=== PATIENT | male | born 1985 | race Caucasian/White ===

== ENCOUNTER 2019-03-21 13:00 | Emergency (ER) | payer MEDICAID ==
[~2019-03-21] VITALS: Ht 180.3 cm; Wt 86.2 kg
[2019-03-21 13:06] VITALS: BP_SYST 144
[2019-03-21] MEDS ORDERED: cefTRIAXone 250 MG VIAL IM ONE (13:45)
[2019-03-21] MEDS ORDERED: AZITHROMYCIN 250 MG TABLET PO ONE (13:45)
[2019-03-21 14:03] LABS: BILIRUBIN,URINE 1+ (NEGATIVE); BLOOD, URINE 2+ (NEGATIVE); CLARITY/URINE HAZY (CLEAR); COLOR,URINE AMBER (YELLOW); GLUCOSE,URINE NEGATIVE (NEGATIVE); KETONES,URINE NEGATIVE (NEGATIVE); LEUKOCYTE ESTERASE ,URINE 2+ (NEGATIVE); NITRITE, URINE NEGATIVE (NEGATIVE); PH,URINE 5.5 (5.0-8.0); PROTEIN URINE 1+ (NEGATIVE)
[2019-03-21 14:13] LABS: BACTERIA,URINE MANY /HPF (None Seen); WBC,URINE >100 /HPF (0-3)
[2019-03-21 14:18] VITALS: BP_SYST 132
[2019-03-21] MEDS ORDERED: POLYMYXIN 500,000/BACIT.10,000 UNITS in NS IRR 1 L IR ONE (14:40)
[2019-03-24 21:11] LABS: CHLAMYDIA TRACHOMATIS NAA Negative (Negative)
[2019-03-25 10:26] LABS: NEISSERIA GONORRHOEAE NAA Positive (Negative)
== END 2019-03-21 14:18 | disposition home or self-care (01) ==
LOC: SED 13:00
DX: N39.0 Urinary tract infection, site not specified (principal); R03.0 Elevated blood-pressure reading, without diagnosis of hypertension
CPT/HCPCS: 81000; 87086; 87491; 87591; 96372; 99283; J0696; Q0144

== ENCOUNTER 2019-10-25 23:27 | Emergency (ER) | payer MEDICAID ==
[~2019-10-25] VITALS: Ht 180.3 cm; Wt 81.6 kg
[2019-10-25 23:45] VITALS: BP_SYST 121
--- NOTE | 2019-10-25 23:50 | NUR ---
Pt to bed 3, side rails up. Report given to En DAMON
--- NOTE | 2019-10-25 23:58 | NUR ---
Pt [id number] came in with a complaint of right ear pain. No other complaint noted. Safety precaution observed, will continue to monitor Pt.
[2019-10-26 00:24] VITALS: BP_SYST 115
--- NOTE | 2019-10-26 00:24 | NUR ---
Patient given written and verbal discharge instructions and verbalizes understanding. ER MD Massey discussed with patient the results and treatment provided. Patient in stable condition. ID arm band removed.Rx of cortisporin, motrin given. Patient educated on pain management and to follow up with PMD. Pain Scale 0/10. Opportunity for questions provided and answered. Medication side effect fact sheet provided.
== END 2019-10-26 00:24 | disposition home or self-care (01) ==
LOC: SED 23:27
DX: H92.01 Otalgia, right ear (principal); R03.0 Elevated blood-pressure reading, without diagnosis of hypertension
CPT/HCPCS: 99283